=== PATIENT | male | born 1995 | race Caucasian/White ===

== ENCOUNTER 2024-07-09 10:44 | Outpatient (CLI) | payer BC | END 2024-07-09 10:45 | disposition home or self-care (01) | LOC: SCSMRI 10:44 | PROVIDERS: ATTEND Chiropractor | DX: M51.360 Other intervertebral disc degeneration, lumbar region with discogenic back pain only (principal); M53.84 Other specified dorsopathies, thoracic region; M79.10 Myalgia, unspecified site; M53.3 Sacrococcygeal disorders, not elsewhere classified | CPT/HCPCS: 72148 ==